=== PATIENT | female | born 2000 | race Two or more races ===

== ENCOUNTER 2021-10-25 15:56 | Inpatient (IN) | payer OTHER ==
[~2021-10-25] VITALS: Ht 152.4 cm; Wt 3.2 kg
== END 2021-10-28 15:52 | disposition home or self-care (01) | DRG 788 ==
LOC: LDR 15:56 → OB/GYN 23:33
PROVIDERS: ADMIT Obstetrics & Gynecology; ATTEND Obstetrics & Gynecology
PROC: 4A1HXCZ Monitoring of Products of Conception, Cardiac Rate, External Approach (ICD-10-PCS; 2021-10-25)
PROC: 10D00Z1 Extraction of Products of Conception, Low, Open Approach (ICD-10-PCS; principal; 2021-10-25 20:00)
DX: O62.0 Primary inadequate contractions (principal); Z3A.39 39 weeks gestation of pregnancy; Z37.0 Single live birth; Z20.822 Contact with and (suspected) exposure to COVID-19